=== PATIENT | female | born 1945 | race Caucasian/White ===

== ENCOUNTER 2019-09-26 16:50 | Inpatient (IN) ==
[2019-09-26 17:48] LABS: BASO# 0.02 X1000 (0.0-0.2); BASO% 0.5 % (0.0-0.8); EOS% 2.4 % (0.0-10.0); HEMATOCRIT 37.2 % (37.0-47.0); HEMOGLOBIN 12.2 g/dL (12.0-16.0); LYMPH# 1.29 X1000 (1.2-3.4); LYMPH% 31.5 % (20.5-51.1); MCH 33.9 PG (27-31); MCHC 32.8 g/dL (33-37); MCV 103.3 FL (81-99); MONO# 0.44 X1000 (0.11-0.59); MONO% 10.8 % (1.7-9.3); MPV 10.8 FL (7.4-10.4); NEUT# 2.24 X1000 (1.4-6.5); NEUT% 54.8 % (42.2-75.2); PLT 162 X1000 (130-400); RDW 13.5 % (11.5-14.5); WBC 4.09 X1000 (4.8-10.8)
[2019-09-26 18:00] LABS: INR 1.54; PROTIME 18.7 Seconds (11.0-16.0)
[2019-09-26 20:10] LABS: PTT 31.6 Seconds (22.3-41.8)
--- NOTE | 2019-09-26 21:23 | PROVIDER DOCUMENTATION ---
This chart was entered by Falguni Preston Scribe, acting as scribe for Madhavi Rose MD. HPI-Female /OB/Breast - General Chief Complaint: Female Stated Complaint: PASSING BLOOD CLOTS,ON BLOOD THINNER Time Seen by Provider: 09/26/19 18:28 Source: reports: patient Allergies/Adverse Reactions: Patient Allergies Allergy/AdvReac Type Severity Reaction Status Date / Time codeine Allergy ITCHING Verified 09/26/19 22:45 Penicillins Allergy ANAPHYLAXIS Verified 09/26/19 22:45 Sulfa (Sulfonamide AdvReac ANAPHYLAXIS Verified 09/26/19 22:45 Antibiotics) Home Medications: Home Medication List Medication Instructions Recorded Confirmed Last Taken Type Furosemide [Lasix] 40 mg PO DAILY 10/01/17 09/26/19 11/27/18 09:30 History PRAVAstatin [Pravachol] 40 mg PO QHS 10/01/17 09/26/19 11/27/18 09:30 History Warfarin [Coumadin] 5 mg PO DIRECTED 10/01/17 09/26/19 11/22/18 History Aspirin 81 mg PO QHS 11/25/18 09/26/19 11/22/18 History Calcium Carbonate/Vitamin D3 1 ea PO DAILY 11/25/18 09/26/19 11/27/18 09:30 History [Calcium 500+D Tablet] Carvedilol 1.25 mg PO BID 11/25/18 09/26/19 11/27/18 09:30 History Citalopram Hydrobromide [Celexa] 40 mg PO DAILY 11/25/18 09/26/19 11/27/18 09:30 History Digoxin 250 mcg PO DAILY 11/25/18 09/26/19 11/27/18 09:30 History Isosorbide Dinitrate [Isordil] 20 mg PO QAM 11/25/18 09/26/19 11/27/18 09:30 History Isosorbide Mononitrate E.r. [Imdur] 15 mg PO DAILY 11/25/18 09/26/19 11/27/18 09:30 History Meclizine HCl [Antivert] 25 mg PO PRN PRN 11/25/18 09/26/19 Unknown History Metformin [Glucophage] 500 mg PO BID CC 11/25/18 09/26/19 11/26/18 20:00 History Pantoprazole [Protonix] 40 mg PO BID 11/25/18 09/26/19 11/27/18 09:30 History Pioglitazone HCl [Actos] 7.5 mg PO DAILY 11/25/18 09/26/19 11/27/18 09:30 History - History of Present Illness-Female /OB Nature of Presenting Problem: Pt is a 73 yof who presents to the ED with profused vaginal bleeding after intercourse with passage of numerous amt of blood clot. Pt states that the bleeding and abd pain began at 3pm. States that she is on blood thinners. States that she is bleeding "blood clots." hx of blood clots. Does patient report she is ?: No Location of complaint: reports: suprapubic, vaginal Radiation: reports: none Quality of Pain: reports: cramping Severity in ED: reports: mild Onset/Duration: reports: 1-3 hours ago Timing: reports: still present Context/Activities at Onset: reports: sexual activity Vaginal Symptoms: reports: abnormal bleeding, passing clots/tissue Vaginal Bleeding Amount: Medium/Moderate Urinary Symptoms: reports: no symptoms Related Symptoms: reports: no symptoms Leakage of Fluid: heavy gush Sexual intercourse history: reports: Less Than 2 Months Ago, Single Partner Contraception: reports: none Modifying Factors: improves with: nothing Associated Symptoms: reports: denies symptoms Similar Symptoms Previously?: No Recently seen or treated by another doctor?: No - LMP/ History Menstrual Status: s/p hysterectomy Review of Systems - Adult - REVIEW OF SYSTEMS - ADULT Constitutional: reports: see HPI Eyes: reports: no symptoms reported Ears, Nose, Mouth & Throat: reports: no symptoms reported Cardiovascular: reports: see HPI, other (hx of afib) Respiratory: reports: no symptoms reported Gastrointestinal: reports: see HPI, abdominal pain Genitourinary: reports: see HPI, other (hx of vaginal bleeding) Musculoskeletal: reports: no symptoms reported Integumentary: reports: no symptoms reported Neurological: reports: no symptoms reported Psychiatric: reports: no symptoms reported Endocrine: reports: no symptoms reported Hematologic/Lymphatic: reports: see HPI, blood clots Allergic/Immunologic: reports: no symptoms reported All Other Systems: Reviewed and Negative Past History - Adult - PAST MEDICAL HISTORY-ADULT Review of Records: reports: Old Records Reviewed, Nursing Assessment Review, Medications Reviewed, Social history reviewed & non-contributory. Major Childhood Illnesses: reports: denies history Cardiovascular: reports: blood clots Respiratory: reports: denies history Gastrointestinal: reports: diverticulosis Obstetrical/Gynecological: reports: denies history Genitourinary: reports: denies history Musculoskeletal: reports: denies history Neurological: reports: denies history Psychiatric: reports: denies history Endocrine/Immune: reports: denies history Other Conditions: reports: denies history - IMMUNIZATION STATUS Childhood Immunizations: See Nurse Assessment Flu Vaccine: See Nurse Assessment - FAMILY HISTORY Family History: reviewed, not pertinent - SOCIAL HISTORY Smoking: non-smoker Substance Use: denies Alcohol Use Frequency: never Living Situation: family Physical Exam-General - PHYSICAL EXAM-ADULT Initial Vital Signs Reviewed: No - CONSTITUTIONAL General Appearance: alert, no apparent distress - EYES Eyes: pink conjunctivae - HEAD, EARS, NOSE, MOUTH & THROAT HENMT: normocephalic/atraumatic, moist mucous membranes - NECK Neck: normal inspection - RESPIRATORY Respiratory: chest non-tender, lungs clear, normal breath sounds. negative: cr ackles, wheezing - CARDIOVASCULAR Cardiovascular: irregularly irregular. negative: bradycardia, tachycardia - GASTROINTESTINAL (ABDOMEN) Abdominal Exam: normal bowel sounds, non tender, soft - GENITOURINARY Female Genitalia/Pelvic Exam: deferred - MUSCULOSKELETAL Back Exam: normal inspection, no CVA tenderness, no vertebral tenderness Extremity: normal range of motion, non-tender, normal gait, normal inspection - SKIN Integumentary: normal color, normal turgor, warm/dry - NEUROLOGIC Neurologic: grossly normal - PSYCHIATRIC Psych/Mental Status: normal mood/affect, normal thought content, normal thought process, oriented x 3 Progress - PLAN OF CARE/RESULTS Progress/Plan/Lab Results: Vital Signs - 8 hr 09/26/19 17:04 09/26/19 20:35 Temperature 98.0 F Pulse Rate 66 53 L Respiratory Rate 18 16 Blood Pressure 155/80 122/82 O2 Sat by Pulse Oximetry 96 98 Laboratory Results - last 24 hr 09/26/19 09/26/19 09/26/19 17:15 17:15 21:11 WBC 4.09 L RBC 3.60 L Hgb 12.2 Hct 37.2 MCV 103.3 H MCH 33.9 H MCHC 32.8 L RDW Std Deviation 13.5 Plt Count 162 MPV 10.8 H Immature Gran % (Auto) 0.0 Neut % (Auto) 54.8 Lymph % (Auto) 31.5 Baxter % (Auto) 10.8 H Eos % (Auto) 2.4 Baso % (Auto) 0.5 Immature Gran # (Auto) 0.00 Neut # (Auto) 2.24 Lymph # (Auto) 1.29 Baxter # (Auto) 0.44 Eos # (Auto) 0.10 Baso # (Auto) 0.02 PT 18.7 H INR 1.54 PTT (Actin FS) 31.6 POC Glucose 101 Orders Category Date Time Status Activity - Bed Rest with BRP ORDERED Care 09/26/19 23:40 Active Nursing- MD Consult Request ROUTINE Care 09/26/19 23:04 Active Saline Loc NOW Care 09/26/19 23:40 Active Vital Signs Order Q 4-HR ASSESS Care 09/26/19 23:40 Active MD [Physician/Provider Consults] Routine Cons 09/26/19 23:04 Ordered NPO Diet 09/26/19 23:05 Completed NPO Diet 09/26/19 23:42 Active BMP [BASIC METABOLIC PANEL] [CHEM] Stat Lab 09/26/19 23:03 Uncollected CBC WITH DIFF [HEME] Stat Lab 09/26/19 17:15 Completed CBC WITH ELECTRONIC DIFF [HEME] Stat Lab 09/27/19 05:00 Uncollected FFP [FRESH FROZEN PLASMA] [BBK] Stat Lab 09/26/19 23:01 Uncollected PROTIME WITH INR [COAG] DAILY Lab 09/27/19 06:00 Ordered PROTIME WITH INR [COAG] DAILY Lab 09/28/19 06:00 Ordered PROTIME WITH INR [COAG] Stat Lab 09/26/19 17:15 Completed PTT [COAG] Stat Lab 09/26/19 17:15 Completed Insulin Human Regular [Humulin R] Med 09/27/19 07:00 Active See Protocol SUBQ 0700,1100,1600,2100 Water, Sterile Inj [Sterile Water Inj.] Med 09/26/19 23:05 Discontinued 10 ml .ROUTE .STK-MED ONE Result Diagrams: 09/26/19 17:15 - REASSESSMENT Reassessment #1 Time Reassessed: 21:00 Status: other (Patient seen, doing okay. Vagina exam attempted with the assistence of nurse Rashida. Large amount of blood clot was removed from labia minora.no vulva laceration seen. Attempted speculum exam reveals passage of copious amount of blood with large clots. no further progress made on exam . Eventally consulted CONCESSION SUPERVISOR, spoke with Dr Baker. He will come to see pt.) Reassessment #2 Time Reassessed: 23:30 Status: other (Dr baker was around to see pt) - CONSULTS/PCP/HOSPITALIST Notification #1 *Consult/PCP/Hospitalist*: Dr. Baker Time Discussed: 21:20 Consult Disposition: other (Consulted Dr Baker, he states he would come in to see patient) Departure - Departure Date of Disposition Decision: 09/26/19 Time of Disposition Decision: 21:20 DIAGNOSIS: Vagina bleeding Disposition: OTHER 72 Certified Medical Emergency: Emergent Condition: Stable Referrals and Follow-Ups: Marty Belle Jr, MD [Primary Care Provider] - - Critical Care Note This patient required my direct & personal management of CC.: No Attestation - Physician/ TJ Attestation Patient care was provided by Advanced Practice Provider:: No The physician spent face to face time with patient:: Yes Advanced Practice Provider documentation review:: Supervising physician onsite and consulted in the evaluation and care of this patient. The physician did have a face to face encounter with the patient. This chart was documented by the indicated scribe, (Falguni Preston Scribe) and accurately reflects the services I performed and decisions made by me, Madhavi Rose MD, as attested by the provider's signature.
[2019-09-26] MEDS ORDERED: STERILE WATER INJ. ONE (23:05)
[2019-09-27 01:08] LABS: AGAP 11; BUN 13 mg/dL (8-22); CALCIUM 9.2 mg/dL (8.8-10.2); CHLORIDE 103 mmol/L (98-107); COSMO 289; CREATININE 0.6 mg/dL (0.5-0.9); ESTIMATED GFR > 60; GLUCOSE 162 mg/dL (70-104); POTASSIUM 3.3 mmol/L (3.5-5.1); SODIUM 143 mmol/L (136-145); TCO2 29 mmol/L (25-35)
[2019-09-27] MEDS: MORPHINE IV PRN ×3 (01:41→20:50)
[2019-09-27] MEDS ORDERED: ZOFRAN IV PRN (02:18)
--- NOTE | 2019-09-27 02:24 | CONSULTATION ---
DATE OF CONSULTATION: 09/26/2019 REASON FOR CONSULTATION: Medical management of atrial fibrillation and anticoagulation. ATTENDING: Dr. Milan. ELECTRICAL ENGINEERING DESIGNER: Dr. Elizabeth. HISTORY OF PRESENTING ILLNESS: This is a 73-year-old female with a history of hypertension, diabetes mellitus type 2, atrial fibrillation on anticoagulation, who is currently under care of Gynecology for vaginal bleeding. Hospital Medicine is consulted for concurrent management of atrial fibrillation and patient being on anticoagulation. At time of my examination, patient had denied any headache, fever, chills, chest pain, shortness of breath or any weight changes. PAST MEDICAL HISTORY: Includes hypertension, diabetes mellitus type 2, GERD, hyperlipidemia and depression. PAST SURGICAL HISTORY: Hysterectomy, gastric bypass, IVC filter, right knee surgery, bilateral carpal tunnel surgery, nasal surgery, hernia repair. ALLERGIES: Codeine, penicillin and sulfa. CURRENT MEDICATIONS: Aspirin 81 mg p.o. at bedtime, carvedilol 1.25 mg p.o. b.i.d., citalopram 40 mg p.o. daily, digoxin mcg p.o. daily, Lasix 40 mg p.o. daily, isosorbide 20 mg p.o. q.a.m., meclizine 25 mg p.o. daily, metformin 500 mg p.o. b.i.d., pantoprazole 40 mg p.o. b.i.d., Actos 7.5 mg p.o. daily, pravastatin 40 mg p.o. at bedtime, warfarin 5 mg p.o. daily. SOCIAL HISTORY: No history of smoking, alcohol or illicit drug use. FAMILY HISTORY: No history of coronary artery disease. REVIEW OF SYSTEMS: Fourteen point review of systems is as listed in HPI. Other systems negative. PHYSICAL EXAMINATION: General: Cooperative, friendly female. She is resting comfortably now. Vital Signs: Temperature 98.0 degrees, pulse 66, respiration 18, blood pressure 155/80. HEENT: Atraumatic, normocephalic. Extraocular movements intact. PERRLA. Neck: No masses. Chest: Clear to auscultation. Cardiovascular: Regular rate and rhythm. Abdomen: Soft. Positive bowel sounds. Extremities: No edema. Neurologic: She is awake, alert, oriented x3. Genitourinary: No bladder distention. Skin: Warm. LABORATORIES AND STUDIES: WBC is 4.09, hemoglobin 12.2, hematocrit 37.2, platelets 162,000. PT, INR are 18.7 and 1.54. ASSESSMENT: This is a 73-year-old female who is currently under care of Gynecology for vaginal bleeding. Hospital Medicine is consulted for concurrent management of anticoagulation therapy, and atrial fibrillation and other medical problems that may arise during hospitalization. 1. Vaginal bleeding. We will refer to Gynecology. 2. Atrial fibrillation, on anticoagulation. 3. Diabetes mellitus type 2. 4. Hypertension. PLAN: 1. The patient is admitted to medical floor with telemetry. 2. We will hold warfarin and give the patient 2 units of FFP for possible surgery. 3. We will monitor blood glucose and put patient on sliding scale insulin regimen. 4. Monitor blood pressure closely and resume antihypertensive agent. 5. Put patient on DVT prophylaxis with SCD. 6. We will continue to follow and reassess. Thank you for allowing me to participate in the care of this patient. cc: MD Richy Goldstein III, MD MTDD
[2019-09-27] MEDS ORDERED: NS 500 ML ONE (04:12)
--- NOTE | 2019-09-27 05:04 | HISTORY AND PHYSICAL ---
HISTORY OF PRESENT ILLNESS: The patient is a 73-year-old white female, G3, P3, who presents to the emergency room with complaints of vaginal bleeding with passage of clots, and this occurred several hours after intercourse. [place] for her previously had been at least 2 decades. PAST MEDICAL HISTORY: Significant for atrial fibrillation, diabetes mellitus, hypercholesterolemia, depression, and congestive heart failure. PAST SURGICAL HISTORY: Significant for right knee surgery, gastric bypass, and hysterectomy, which was then followed by bilateral salpingo-oophorectomy. She has had carpal tunnel on both wrists, removal of nasal polyp, and x3. PAST OB HISTORY: G3, P3, x3. TOOLMAKER GRADE THREE HISTORY: Hysterectomy. REVIEW OF SYSTEMS: She had migraines early, but none at present time. FAMILY HISTORY: Significant for myocardial infarction. SOCIAL HISTORY: Tobacco use none. Alcohol use none. ALLERGIES: Penicillin, sulfa peppermint, and codeine. MEDICATIONS: 1. Lasix 40 mg daily. 2. Pravastatin 40 mg at bedtime. 3. Coumadin 5 mg as directed. 4. Aspirin 81 mg at bedtime. 5. Calcium carbonate and vitamin D3 1 pill daily. 6. Carvedilol 1.25 mg p.o. b.i.d. 7. Celexa 40 mg daily. 8. Digoxin 250 mcg daily. 9. Isordil 20 mg in the morning. 10. Imdur 15 mg daily. 11. Antivert 25 mg as needed. 12. Glucophage 500 mg p.o. b.i.d. 13. Protonix 40 mg b.i.d. 14. Actos 7.5 mg p.o. daily. PHYSICAL EXAMINATION: VITAL SIGNS: Height 5 feet 2 inches, weight 131 pounds, temperature 98 degrees, pulse of 66, blood pressure 155/80, and respirations 18. HEENT: Pupils equal, round, and reactive to light accommodation. Extraocular movements intact. Oropharynx clear. NECK: Supple. No thyromegaly. LUNGS: Clear to auscultation. HEART: Regular rate and rhythm. ABDOMEN: Bowel sounds positive. Soft. Nontender. PELVIC: There was blood on the labia. She was placed in a pelvic exam setting, and speculum exam was performed. Upon evaluation of the external genitalia, she had a small vaginal orifice. I was able to place a speculum. Blood clots were seen in the vaginal vault. These were removed with a sponge stick and 4x4s, and able to see the vaginal cuff. It appeared that the bottom edge of the vaginal cuff there appeared to be a vaginal tear which I did not review as active bleeding at the present time. EXTREMITIES: No clubbing, cyanosis, or edema noted. LABORATORY: The patient had a white count of 4.09, hemoglobin 12.2, hematocrit 37.2, and platelet count of 162,000. Her PT was elevated at 18.7, PTT was normal at 31.6, and glucose was 101. ASSESSMENT/PLAN: A 73-year-old white female with vaginal bleeding, and possible vaginal trauma. Would like to do an exam under anesthesia. However, the patient's anticoagulation status and the fact also that she had something to eat while in the ER have made it difficult to admit her and do surgery right away. We will consult Medicine, and assist with medical management due to anticoagulation. Also, a 4 x 4 that was moistened with saline and had Monsel's placed on it was placed in the vaginal vault. Hopefully, this will slow down some of her bleeding. We will check a CBC. We discussed with patient the risks of surgery including bleeding or infection, and the possibility that she may need blood transfusion. Dr. Elizabeth was consulted concerning medical care. The patient has seen by Dr. Belle for her normal care. cc: Richy Milan III, MD
[2019-09-27 05:48] LABS: INR 1.49; PROTIME 18.2 Seconds (11.0-16.0)
[2019-09-27 06:09] LABS: BASO# 0.01 X1000 (0.0-0.2); BASO% 0.2 % (0.0-0.8); EOS# 0.06 X1000 (0.0-0.7); HEMATOCRIT 32.1 % (37.0-47.0); HEMOGLOBIN 10.3 g/dL (12.0-16.0); LYMPH# 0.88 X1000 (1.2-3.4); LYMPH% 14.5 % (20.5-51.1); MCH 33.4 PG (27-31); MCHC 32.1 g/dL (33-37); MCV 104.2 FL (81-99); MONO# 0.47 X1000 (0.11-0.59); MONO% 7.8 % (1.7-9.3); MPV 10.5 FL (7.4-10.4); NEUT# 4.64 X1000 (1.4-6.5); NEUT% 76.5 % (42.2-75.2); PLT 146 X1000 (130-400); RBC 3.08 XMIL (4.2-5.4); RDW 13.4 % (11.5-14.5); WBC 6.06 X1000 (4.8-10.8)
[2019-09-27] MEDS: HUMULIN R SUBQ SCH ×4 (06:18→17:05)
[2019-09-27] MEDS ORDERED: XYLOCAINE-MPF 2% ONE (07:44)
[2019-09-27] MEDS ORDERED: DIPRIVAN 1% ONE (07:44)
[2019-09-27] MEDS ORDERED: SENSORCAINE 0.25%/EPI 1:200,000 ONE (08:05)
[2019-09-27] MEDS ORDERED: POTASSIUM CHLORIDE 60 MEQ in NS 500 ML IV ONE (08:51)
[2019-09-27] MEDS ORDERED: CLINDAMYCIN 600 MG/D5W 600 MG/50 ML IVPB ONE (09:10)
--- NOTE | 2019-09-27 09:21 | PROGRESS NOTE ---
DATE: 09/27/2019 SUBJECTIVE: The patient came in with vaginal bleeding. She had sexual intercourse for the first time in many years. She has not been on hormones. She had noticed that even at other times when she would wipe, she would get a little blood back. She is anticoagulated, and came in with an INR of 1.54. It is down to 1.49 this morning. She is getting some fresh frozen plasma. She is on her second unit. I may give her a little vitamin K if they are real concerned about this for surgery. It does take a little longer to get her back anticoagulated after vitamin K. Potassium is a little low as well at 3.3. I am going to supplement that. She is a diabetic with history of congestive heart failure, chronic diarrhea, has dropped her hemoglobin from 12.2 to 10.3, hematocrit 37.2 to 32.1. OBJECTIVE: General: She is in no distress, but says she hurts a little bit vaginally. Vital Signs: Blood pressure is a little low at 98/56, respirations 13, pulse 73, temperature 98.2 degrees Fahrenheit. HEENT: She is normocephalic. EOMs intact. PERRLA. Throat clear. Lungs: Sound clear to auscultation and percussion without rhonchi, rales, or wheezes. Heart: Irregularly irregular without murmurs, gallops, or friction rubs. Abdomen: Soft. Active bowel sounds. No organomegaly or tenderness. Neurologic: Intact grossly. ASSESSMENT: 1. Vaginal bleeding. 2. Blood loss. 3. Mild hypotension. 4. Secondary diagnoses of adult-onset diabetes mellitus, congestive heart failure, chronic atrial fibrillation. PLAN: Will give the fresh frozen plasma. If there is still any bleeding, may give some vitamin K. Will supplement potassium. Will put her on a sliding scale for her blood sugars. Appreciate the consult from Dr. Milan. Will continue to follow. I do think that the patient could go to surgery and have her vaginal bleeding evaluated. She has had a previous hysterectomy, so this may be just a vaginal tear. cc: MD Richy Dixon Jr, III, MD
[2019-09-27] MEDS ORDERED: DECADRON ONE (09:38)
[2019-09-27] MEDS ORDERED: ZOFRAN ONE (09:38)
[2019-09-27] MEDS ORDERED: FENTANYL ONE (10:07)
[2019-09-27] MEDS: DILAUDID ONE ×2 (10:37→10:40)
[2019-09-27] MEDS ORDERED: BLISTEX MEDICATED BERRY LIP BALM ONE (10:49)
--- NOTE | 2019-09-27 11:01 | OPERATIVE NOTE ---
PROCEDURE DATE: 09/27/2019 PREOPERATIVE DIAGNOSIS: Vaginal bleeding after vaginal trauma. POSTOPERATIVE DIAGNOSIS: Vaginal bleeding after vaginal trauma. PROCEDURE PERFORMED: Examination under anesthesia and repair of vaginal laceration. SURGEON: Richy Milan III, MD. STERILE TECH: ORT. ANESTHESIA: General, Dr. Bill. FINDINGS: Vaginal laceration from the midline to the right vaginal sidewall. COMPLICATIONS: None. PACKS: A vaginal pack was placed inside the vaginal vault after it was moistened with saline. ESTIMATED BLOOD LOSS: 80 mL. SPECIMENS REMOVED: None. COUNTS: All counts were correct x3. INDICATIONS: Patient is a 73-year-old, white female, G 3, P 3, who presents with vaginal bleeding after intercourse. The patient was seen in the emergency room and admitted, stopped anticoagulation therapy, and gave fresh frozen plasma prior to surgery. We will proceed with repair of vaginal laceration with exam under anesthesia. The patient counseled about the risks of surgery including bleeding or infection. DESCRIPTION OF PROCEDURE: The patient was taken to OR, placed in the supine position. General anesthesia was employed. She was then placed in the dorsal lithotomy position using candy-cane stirrups. She was prepped and draped in a sterile fashion. A red Garces catheter was used to empty her bladder of 80 mL of clear urine. A weighted speculum was placed in the posterior vagina. The vaginal cuff was inspected and near the midline appeared to be the beginning of a laceration that covered all the way around the bend onto the right vaginal sidewall area. This was then closed using 3-0 chromic in a running locking fashion x1. Good hemostasis was then noted. The vaginal vault had a vaginal pack placed after it was moistened with saline. The patient tolerated the procedure well, was taken to the recovery room in stable condition. All counts were correct x3. cc: Richy Milna III, MD
--- NOTE | 2019-09-27 14:38 | EKG Report ---
Test Performed on : 09/27/2019 2:23:09 PM Test Reason : afib Blood Pressure : / mmHG Vent. Rate : 085 BPM Atrial Rate : 068 BPM P-R Int : 000 ms QRS Dur : 094 ms QT Int : 364 ms P-R-T Axes : 000 019 203 degrees QTc Int : 433 ms Atrial fibrillation. with premature ventricular or aberrantly conducted complexes. T wave abnormality, consider lateral ischemia Abnormal ECG When compared with ECG of 25-NOV-2018 08:57, Vent. rate has increased BY 35 BPM Criteria for Septal infarct are no longer present Confirmed by Val Joseph MD ([id number]) on 09/29/2019 12:13:29 PM
[2019-09-28] MEDS: HUMULIN R SUBQ SCH ×3 (03:36→11:54)
[2019-09-28 08:18] LABS: BASO# 0.02 X1000 (0.0-0.2); BASO% 0.3 % (0.0-0.8); EOS# 0.12 X1000 (0.0-0.7); EOS% 1.8 % (0.0-10.0); HEMATOCRIT 31.1 % (37.0-47.0); HEMOGLOBIN 9.7 g/dL (12.0-16.0); LYMPH# 1.57 X1000 (1.2-3.4); LYMPH% 23.1 % (20.5-51.1); MCH 33.7 PG (27-31); MCHC 31.2 g/dL (33-37); MONO# 0.68 X1000 (0.11-0.59); MPV 10.4 FL (7.4-10.4); NEUT# 4.42 X1000 (1.4-6.5); NEUT% 64.8 % (42.2-75.2); PLT 144 X1000 (130-400); RBC 2.88 XMIL (4.2-5.4); RDW 13.9 % (11.5-14.5); WBC 6.81 X1000 (4.8-10.8)
[2019-09-28 08:19] LABS: INR 1.1; PROTIME 14.3 Seconds (11.0-16.0)
[2019-09-28 08:22] LABS: AGAP 8; BUN 9 mg/dL (8-22); CALCIUM 8.8 mg/dL (8.8-10.2); CHLORIDE 100 mmol/L (98-107); COSMO 281; CREATININE 0.5 mg/dL (0.5-0.9); ESTIMATED GFR > 60; GLUCOSE 142 mg/dL (70-104); POTASSIUM 4.4 mmol/L (3.5-5.1); SODIUM 140 mmol/L (136-145); TCO2 32 mmol/L (25-35)
[2019-09-28] MEDS: MORPHINE IV PRN (09:03)
[2019-09-28] MEDS: GLUCOPHAGE PO SCH (09:14)
--- NOTE | 2019-09-28 09:31 | PROGRESS NOTE ---
DATE: 09/28/2019 SUBJECTIVE: The patient says she is hurting a little bit in her vagina. The packing was taken out. Apparently there was no fresh blood seen just a little bit on the packing at all. She has dropped her hemoglobin from 12+ down to 9.7, hopefully she has quit bleeding now that the vaginal laceration has been repaired. The patient refused inulin on her sliding scale. I am going to start her back on her metformin which generally will not cause hypoglycemia anyway. She is starting to eat now blood pressure is about normal off of blood pressure medication with a 112 to 115 systolic pressure and I would probably wait and start blood pressure medicine back tomorrow. We will hold her other medicines for the time being such as her Lasix. Her potassium is better from 3.3 up to 4.4. OBJECTIVE: Blood pressure is 112/45, respirations 16, pulse 70, temperature 98.5 degrees Fahrenheit. HEENT: She is normocephalic. EOMS intact. PERRLA. Throat clear. Lungs are clear to auscultation and percussion without rhonchi, rales, or wheezes. Heart irregularly irregular without murmurs, gallops, friction rubs. Abdomen: Soft. Active bowel sounds. No organomegaly or tenderness. Neurologic: Intact grossly. ASSESSMENT: 1. Vaginal bleeding from vaginal tear. 2. Anemia. 3. History of congestive heart failure. 4. Chronic atrial fibrillation. 5. Diabetes mellitus. 6. Hypertension. PLAN: Will restart metformin. Hold the other medicines probably until tomorrow. If she is discharged today then we could start those medicines tomorrow. If she is not then we may start tomorrow. If she has no further bleeding probably could go home tomorrow at the discretion of the attending. If he feels strongly she could go home later this afternoon, there was no more bleeding that would also be possible. I would probably hold her Coumadin for about a week. And if she does go home then I want see her back in the office with an INR and prothrombin time and then I will restart her Coumadin as appropriate although we certainly want to make sure there was no bleeding first. cc: MD Richy Dixon Jr, III, MD
[2019-09-28] MEDS ORDERED: NORCO-7.5 PO PRN (17:52)
[2019-09-29] MEDS: HUMULIN R SUBQ SCH ×3 (01:25→11:27)
[2019-09-29 08:11] VITALS: BP 123/60
[2019-09-29 08:50] LABS: BASO# 0.02 X1000 (0.0-0.2); BASO% 0.3 % (0.0-0.8); EOS# 0.22 X1000 (0.0-0.7); EOS% 3.8 % (0.0-10.0); HEMATOCRIT 31.5 % (37.0-47.0); HEMOGLOBIN 9.6 g/dL (12.0-16.0); LYMPH# 1.51 X1000 (1.2-3.4); LYMPH% 25.9 % (20.5-51.1); MCH 32.9 PG (27-31); MCHC 30.5 g/dL (33-37); MCV 107.9 FL (81-99); MONO# 0.48 X1000 (0.11-0.59); MONO% 8.2 % (1.7-9.3); MPV 10.4 FL (7.4-10.4); NEUT# 3.59 X1000 (1.4-6.5); NEUT% 61.8 % (42.2-75.2); PLT 147 X1000 (130-400); RBC 2.92 XMIL (4.2-5.4); RDW 13.6 % (11.5-14.5); WBC 5.82 X1000 (4.8-10.8)
[2019-09-29] MEDS ORDERED: OSCAL 500 + D PO SCH (09:00)
[2019-09-29] MEDS ORDERED: ACTOS PO SCH (09:00)
[2019-09-29] MEDS ORDERED: PROTONIX PO SCH (09:00)
[2019-09-29] MEDS ORDERED: COREG PO SCH (09:00)
[2019-09-29] MEDS ORDERED: LANOXIN PO SCH (09:00)
[2019-09-29] MEDS ORDERED: ISORDIL PO SCH (09:00)
--- NOTE | 2019-09-29 09:04 | PROGRESS NOTE ---
DATE: 09/29/2019 SUBJECTIVE: The patient says she feels fine. She has an appetite. We restarted her home medications. There was some question about her isosorbide but she had two different ones listed. She is taking the lesser dose. She has had no more bleeding that she can tell. OBJECTIVE: Vital Signs: Blood pressure 123/60, respirations 18, pulse 78, temperature 98.3 degrees Fahrenheit. HEENT: She is normocephalic. EOMs intact. PERRLA. Throat clear. Lungs: Clear to auscultation and percussion without rhonchi, rales, or wheezes. Heart: Irregularly irregular without murmurs, gallops, or friction rubs, consistent with her chronic atrial fibrillation. Abdomen: Soft. Active bowel sounds. No organomegaly or tenderness. Neurological: Examination intact grossly. ASSESSMENT: 1. Vaginal tear, now repaired. 2. Anemia. 3. Secondary diagnoses of heart failure, diabetes, hypertension, hyperlipidemia. PLAN: If hemoglobin this morning is stable, we think that she can go home. Discharge home at the discretion of Dr. Milan. Continue home medicines except hold the aspirin and hold the Coumadin. I would like to see her in my office in a week and we will do an INR and prothrombin time at that time. She has had no further bleeding, we will probably reinstitute her other medications. cc: MD Richy Dixon Jr, III, MD
[2019-09-29 09:05] LABS: AGAP 8; BUN 10 mg/dL (8-22); CALCIUM 9.4 mg/dL (8.8-10.2); CHLORIDE 100 mmol/L (98-107); COSMO 283; CREATININE 0.5 mg/dL (0.5-0.9); ESTIMATED GFR > 60; GLUCOSE 144 mg/dL (70-104); POTASSIUM 4.5 mmol/L (3.5-5.1); SODIUM 141 mmol/L (136-145); TCO2 33 mmol/L (25-35)
[2019-09-29] MEDS: CELEXA PO SCH ×2 (09:18→09:30)
[2019-09-29] MEDS: GLUCOPHAGE PO SCH ×2 (09:20→11:28)
--- NOTE | 2019-09-29 10:06 | EKG Report ---
Test Performed on : 09/29/2019 09:53:11 AM Test Reason : CAT CALL Blood Pressure : / mmHG Vent. Rate : 090 BPM Atrial Rate : 227 BPM P-R Int : 000 ms QRS Dur : 090 ms QT Int : 350 ms P-R-T Axes : 000 002 215 degrees QTc Int : 428 ms Atrial fibrillation. Septal infarct , age undetermined ST & T wave abnormality, consider inferior ischemia ST & T wave abnormality, consider anterolateral ischemia Abnormal ECG When compared with ECG of 27-SEP-2019 14:23, (Unconfirmed) Septal infarct is now present Inverted T waves have replaced nonspecific T wave abnormality in Anterior leads Confirmed by Jake MONTEJO, MOlga Wood ([id number]) on 09/29/2019 12:16:33 PM
[2019-09-29] MEDS ORDERED: PRAVACHOL PO SCH (21:00)
--- NOTE | 2019-10-02 14:46 | DISCHARGE SUMMARY ---
ADMISSION DATE: 09/27/2019 DISCHARGE DATE: 09/29/2019 DIAGNOSIS: Vaginal bleeding and vaginal laceration. FINAL DIAGNOSIS: Vaginal bleeding and vaginal laceration. PROCEDURES: Exam under anesthesia and repair of vaginal laceration. BRIEF HISTORY: Patient is a 73-year-old white female, G3, P3, presents to the emergency room with complaints of vaginal bleeding with passage of clots. This occurred several hours after intercourse. Previous intercourse for this patient had been at least 2 decades. PAST MEDICAL HISTORY: Significant for atrial fibrillation, diabetes mellitus, hypercholesterolemia, depression, and congestive heart failure. PAST SURGICAL HISTORY: Significant for right knee surgery, gastric bypass, hysterectomy, which was followed by bilateral salpingo-oophorectomy. Patient had carpal tunnel on both wrists and removal of nasal polyp as well as x3. PAST OB HISTORY: G3, P3, x3. PLAST[employer] HISTORY: Hysterectomy. REVIEW OF SYSTEMS: Patient with migraines early but none at present time. FAMILY HISTORY: Significant for myocardial infarction. SOCIAL HISTORY: Tobacco use none. Alcohol use none. ALLERGIES: Penicillin, sulfa, peppermint, and codeine. MEDICATIONS: Lasix 40 mg daily, pravastatin 40 mg at bedtime, Coumadin 5 mg as directed, aspirin 81 mg at bedtime, calcium carbonate and vitamin D3 1 pill daily, carvedilol 1.25 mg p.o. b.i.d., Celexa 40 mg daily, digoxin 250 mcg daily, Isordil 20 mg in the morning, Imdur 15 mg daily, Antivert 25 mg as needed, Glucophage 500 mg p.o. b.i.d., Protonix 40 mg b.i.d., Actos 7.5 mg p.o. daily. PHYSICAL EXAMINATION: Vital Signs: Height 5 feet 2 inches, weight 131 pounds. Temperature 98 degrees, pulse of 66, blood pressure 155/80, respirations 18. HEENT: Pupils equal, round, reactive to light, accommodation. Extraocular movements intact. Oropharynx clear. Neck: Supple. No thyromegaly. Lungs: Clear to auscultation. Heart: Regular rate and rhythm. Abdomen: Bowel sounds positive. Soft, nontender. Pelvic: There was blood on the labia on external exam. The patient placed in the pelvic exam setting. Speculum exam was performed and noted that there was a small vaginal orifice. I was able to place a speculum. Blood clots were seen in the vaginal vault. After these were removed with sponge stick and 4 x 4s, able see the vaginal cuff and appeared that there was a vaginal tear. We could not see all of the laceration due to blood in the vaginal vault. Extremities: No clubbing, cyanosis, or edema noted. LABORATORY STUDIES: White count on a CBC was 4.09, hemoglobin was 12.2, hematocrit 37.2, platelet count 162,000. PT was elevated at 18.7, PTT normal at 31.6, glucose was 101 and INR was 1.5. ASSESSMENT/PLAN: A 73-year-old white female with vaginal bleeding, possible vaginal trauma. Plan to admit the patient and perform exam under anesthesia and repair of laceration and/or tear as visualized under anesthesia. At the time of admission, Dr. Elizabeth was consulted concerning medical care. The patient is seen by Dr. Belle for normal primary care. HOSPITAL COURSE: The patient was admitted overnight and was given fresh frozen plasma. Her INR remained about the 1.5 level after transfusion and her Coumadin was stopped at present time as well as the aspirin and she was NPO thus able to take to the operating room at this point in time on 09/27/2019. At the time of operation, it was noted the patient had a vaginal laceration extended from the midline of the vaginal cuff to the right vaginal sidewall area roughly about 2 inches in total. This was repaired with 3-0 chromic and patient had a vaginal pack placed at the time of surgery that was moistened with saline. Postoperatively, the patient was assisted with medical management by Dr. Belle and her initial hemoglobin after surgery was 9.7, hematocrit was 31.1 and her blood sugars were also monitored ranging in the 140 to 160 range. Patient was advanced on her diet as tolerated and also allowed to ambulate as she tolerated. The patient did well postoperatively and on postop day #2 she had positive flatus and her hemoglobin was stable. She reported just minimal amount of spotting afterward. At this point in time, it was felt that she could be discharged home. DISCHARGE PLANS: Patient will be discharged home. Instructed to follow up in 1 week with me for postop care. Also to follow up with Dr. Belle for her medical care. She was instructed to restart her medications as she had at home except for Coumadin and aspirin. She was given prescriptions for iron sulfate, Colace 100 mg and [place] 10 for pain. cc: MD Dr. Yoshi Bill III
== END 2019-09-29 14:23 | disposition home or self-care (01) | DRG 760 ==
LOC: ED 16:50 → EDIPHOLD 09-27 00:38 → 3N 09-27 01:57
PROVIDERS: ADMIT Obstetrics & Gynecology; ATTEND Obstetrics & Gynecology